=== PATIENT | male | born 1945 | race Caucasian/White ===

== ENCOUNTER → 2019-11-18 | Outpatient (CLI) | payer MEDICARE ==
--- NOTE | 2019-11-18 16:09 | CT ---
EXAMINATION TYPE: CT angio neck DATE OF EXAM: 11/18/2019 HISTORY: Carotid stenosis per order. COMPARISON: NONE CT DLP: 301.2 mGycm. Automated Exposure Control for Dose Reduction was Utilized. TECHNIQUE: CTA scan of the neck is performed without and with IV Contrast, patient injected with 65m l mL of Isovue 370, axial images are obtained, coronal and sagittal reformatted images are reviewed. Three-D reconstructed images are created on an independent workstation and reviewed. FINDINGS: Carotid/Vascular Structures: Mild mixed plaque in the aortic arch. Normal 3 vessel origin from the ao rtic arch with mild to moderate peripheral mixed plaque. No significant stenosis. Normal origin of ri ght common carotid artery from right brachiocephalic artery. Focal moderate to severe anterior calcified plaque in the distal right common carotid artery without significant greater than 50% stenosis. There is more focal moderate plaque right carotid bulb with mo re severe mixed plaque extending into the proximal internal carotid artery. Lumen diameter is narrowe d up to 3.2 mm raw data slice 586 with reconstitution up to 5.3 mm distal to this. The stenosis measu res under 50%. Patent right external carotid artery patent without significant stenosis. Tortuous cou rse to the remainder proximal to mid internal carotid artery with more moderate calcified plaque supr aclinoid segment. No additional significant stenosis. Moderate eccentric anterior plaque mid to distal left common carotid artery without significant steno sis. There is additional prominent anterior noncalcified moderate to severe plaque causing stenosis a pproaching but under 50%. There is focal significant narrowing with lumen diameter measuring down to 1.9 mm on raw data image 497 and reconstitution superior to this up to 8.8 mm due to densely calcifie d plaque. Remainder right internal carotid artery shows tortuous course proximal to mid segment with moderate peripheral plaque supraclinoid segment. No additional significant stenosis. Significant sten osis at origin of right external carotid artery also felt present. Some calcified plaque along course of distal vertebral arteries bilaterally. Vertebral arteries are p atent to basilar junction. Other: There is 2.0 cm low dense lesion in the posterior scalp axial image 64 likely reflecting sebac eous cysts or other dermatologic etiology. Slight scoliotic curvature with multilevel spurring in the spine. Reversal of normal cervical curvatu re with moderate disc space narrowing C5-C6 and C6-C7 levels. IMPRESSION: Confirmation of significant stenosis proximal left internal carotid artery due to severel y calcified plaque approaching 80% lumen diameter narrowing. Some limitation on calcified plaque due to blooming artifact noted. Significant stenosis also at origin of left external carotid artery incid entally noted.
== END | disposition home or self-care (01) ==
LOC: RADCTMAIN 13:12
PROVIDERS: ATTEND Thoracic Surgery (Cardiothoracic Vascular Surgery)
DX: I65.22 Occlusion and stenosis of left carotid artery (principal)
CPT/HCPCS: 82565; 84520; 70498; 36415; Q9967

== ENCOUNTER 2020-06-10 06:45 | Inpatient (IN) | payer MEDICARE ==
[2020-06-04 16:29] VITALS: BMI 26.5
[2020-06-10] MEDS ORDERED: HYDROmorphone 0.5 MG/0.5 ML SYRINGE IVP PRN (07:00)
[2020-06-10 07:21] VITALS: BP 178/88; PULSE 72; RESP 16; TEMP 97.5
[2020-06-10] MEDS: ONDANSETRON 4 MG/2 ML VIAL IVP PRN (07:40)
[2020-06-10] MEDS: LACTATED RINGERS 1,000 ML IV SCH (07:40)
[2020-06-10] MEDS: LIDOCAINE 1% (10MG/ML) FOR IV START INTRADERMA PRN (07:40)
[2020-06-10] MEDS: DEXAMETHASONE SOD PHOSPHATE 4 MG/ML 1 ML VIAL IV ONE (07:41)
== END 2020-06-10 09:41 | disposition home or self-care (01) | DRG 68 ==
LOC: 2ORMAIN 06:45
PROVIDERS: ADMIT Surgery; ATTEND Surgery
DX: I65.23 Occlusion and stenosis of bilateral carotid arteries (principal); I27.20 Pulmonary hypertension, unspecified; I73.9 Peripheral vascular disease, unspecified; Z53.9 Procedure and treatment not carried out, unspecified reason; R06.00 Dyspnea, unspecified; E78.2 Mixed hyperlipidemia; I08.8 Other rheumatic multiple valve diseases; I10 Essential (primary) hypertension; J45.909 Unspecified asthma, uncomplicated; I25.10 Atherosclerotic heart disease of native coronary artery without angina pectoris; Z79.899 Other long term (current) drug therapy
CPT/HCPCS: 86850; 86900; 86901

== ENCOUNTER 2020-06-11 11:07 | Inpatient (IN) | payer MEDICARE ==
[2020-06-10 11:34] VITALS: BMI 26.4
[~2020-06-11 11:07] MED LIST: MIDAZOLAM 2 MG/2 ML VIAL IV PRN; NITROGLYCERIN-D5W PMX 50 MG in DEXTROSE/WATER 1 250ML.BAG IV SCH; ONDANSETRON 4 MG/2 ML VIAL IVP ONE
[2020-06-11] MEDS: LACTATED RINGERS 1,000 ML IV SCH (11:57)
[2020-06-11] MEDS ORDERED: LIDOCAINE 1% (10MG/ML) FOR IV START INTRADERMA ONE (11:57)
[2020-06-11] MEDS: DEXAMETHASONE SOD PHOSPHATE 4 MG/ML 1 ML VIAL IV ONE ×2 (12:15→18:55)
[2020-06-11] MEDS ORDERED: PHENYLEPHRINE 40 MG in SODIUM CHLORIDE 0.9% 250 ML IV ONE (12:15)
[2020-06-11] MEDS ORDERED: MIDAZOLAM 2 MG/2 ML VIAL IVP ONE (12:28)
--- NOTE | 2020-06-11 14:17 | P.ANPRN ---
Procedure Note - Anesthesia - Invasive Line Right Arterial Line Time Out Performed: Yes (1222) Date of Procedure: 06/11/20 Time of Procedure: 12:23 Location of Patient: PreOp Preparation: Sterile Prep Ultrasound Used: Yes Purpose - Visualization and Identification of Vasculature: Yes Image Stored and Saved: Yes Narrative: Central line placement per sterile protocol utilized. +local +attempt x 1 +secured
[2020-06-11] MEDS ORDERED: fentaNYL (PF) 50 MCG/ML 2 ML AMP ONE (14:25)
[2020-06-11] MEDS ORDERED: PROTAMINE SULFATE 10 MG/ML 5 ML VIAL IV ONE (14:25)
[2020-06-11] MEDS ORDERED: LIDOCAINE 1% INJ 10MG/ML (20 ML MDV) ONE (14:25)
[2020-06-11] MEDS ORDERED: NEOSTIGMINE 1 MG/ML 10 ML VIAL ONE (14:25)
[2020-06-11] MEDS ORDERED: PHENYLEPHRINE-0.9% NACL SYG 1,000 MCG/10 ML SYRINGE ONE (14:25)
[2020-06-11] MEDS ORDERED: HEPARIN SODIUM,PORCINE 5,000 UNIT/ML 1 ML VIAL ONE (14:25)
[2020-06-11] MEDS ORDERED: SUCCINYLCHOLINE CHLORIDE 100 MG/5 ML SYR IV ONE (14:25)
[2020-06-11] MEDS ORDERED: PROPOFOL 10 MG/ML 20 ML VIAL IV ONE (14:25)
[2020-06-11] MEDS ORDERED: ROCURONIUM 10 MG/ML (5 ML VIAL) IV ONE (14:25)
[2020-06-11] MEDS ORDERED: GLYCOPYRROLATE 0.2 MG/ML 2 ML VIAL ONE (14:25)
[2020-06-11] MEDS ORDERED: LIDOCAINE 1% INJ 10MG/ML (20 ML MDV) SQ ONE (14:28)
[2020-06-11] MEDS ORDERED: SODIUM CHLORIDE 0.9% IRRIGATION ONE (15:21)
[2020-06-11] MEDS ORDERED: HEPARIN SODIUM PORCINE IRRIGATION ONE (15:21)
[2020-06-11] MEDS ORDERED: ceFAZolin 2 GM in SODIUM CHLORIDE 0.9% 500 ML 500 ML IRRIGATION ONE (15:28)
[2020-06-11] MEDS ORDERED: LACTATED RINGERS 1,000 ML IV ONE (16:01)
[2020-06-11] MEDS ORDERED: TRIMETHOBENZAMIDE 100 MG/ML 2 ML VIAL IM PRN (16:48)
[2020-06-11] MEDS ORDERED: MAG HYDROX/AL HYDROX/SIMETH 30 ML CUP PO PRN (16:48)
[2020-06-11] MEDS ORDERED: BENZOCAINE/MENTHOL LOZENG 1 EACH LOZENGE MUCOUS MEM PRN (16:48)
--- NOTE | 2020-06-11 16:48 | P.OP ---
Date of Procedure: 06/11/20 Preoperative Diagnosis: Hemodynamically severe left internal carotid artery stenosis. Postoperative Diagnosis: Same. Procedure(s) Performed: Left carotid endarterectomy with patch angioplasty. Anesthesia: FARRUKH Surgeon: Wilson Martin Child Care Cook #1: Matt Crenshaw Estimated Blood Loss (ml): 50 IV fluids (ml): 700 Urine output (ml): 200 Pathology: other (#1 left carotid plaque. #2 left cervical lymph node.) Condition: stable Disposition: PACU Indications for Procedure: Patient is a 74 Johan male who was found be suffering from here medically severe carotid stenosis. This is confirmed both on carotid duplex imaging as well as CT angiography. This stenosis is estimated to be greater than 80%. Options of continued medical therapy versus carotid endarterectomy versus carotid stenting were discussed with the patient. Is felt the patient would be best served by carotid endarterectomy. The procedure, risk and benefits were discussed. Patient wished to proceed. Description of Procedure: Patient brought the upper and placed in the supine position Mr. general endotracheal anesthesia delivered by the department anesthesiology. Figueroa catheter is placed to gravity drainage. The patient did receive 2 g of intravenously administered Ancef in the perioperative phase for prophylactic therapy. The left lateral neck supraclavicular and anterior chest wall areas were sterilely prepped and draped in the usual manner. Skin incision along the anterior border the sternocleidomastoid muscle was made carried down through the subcu change tissues. Hemostasis was achieved using electrocautery. Incision was deepened through the platysma and continued along the anterior border sternocleidomastoid muscle which was retracted posteriorly and laterally. The facial vein was identified doubly ligated and divided between the ligatures. The dissection was carried to the carotid sheath. The common carotid artery was identified and dissected free and vessel of the inve sting tissues and encircled Vesseloops. The vagus nerve was identified and left undisturbed. The dissection was then carried cephalad to the level of bulb. The superior thyroid artery and external carotid artery were dissected free of investing tissues and encircled Vesseloops. The dissection was then carried along the internal carotid to a level past the plaque burden. Vessel loop was placed about the internal carotid artery at this point. The patient was systemically heparinized. ACT was drawn and found to be 243. The Vesseloops surrounding the superior thyroid and external carotid artery were drawn closed. A clamp was placed on both the common and internal carotid arteries. Arteriotomy was made in the common carotid and extended with Bustos scissors through the bulb into the internal carotid artery. Back pressure were obtained. The mean ICA pressure was approximate 35 mmHg and as such a shunt was placed first in the internal carotid and allowed to backbleed and then placed in the common carotid artery, thus restoring flow into the internal segment. Endarterectomy plane was started in the common carotid extending to the bulb where a retraction endarterectomy was performed on the external system. The endarterectomy plane was continued into the internal carotid artery. The plaque was then removed. The residual plaque at the internal was then with 7-0 Prolene suture. The remaining luminal surface was inspected for any loose or free- floating material and this was removed where identified. Patch angioplasty closure with bovine pericardial patch was performed with 6-0 Prolene suture placed in running fashion. Just prior to completion anastomotic line the shunt was clamped and removed from the internal carotid artery. The internal carotid artery was backbled and re-occluded. The shunt was removed from the internal carotid artery. This was flushed and no thrombus was retrieved. The endarterectomized segment was flushed with heparinized saline solution and the anastomotic line closure completed. Backbleeding was allowed to occur from the internal carotid artery. Was occluded at its origin with DeBakey forceps. The Vesseloops surrounding the external carotid and superior thyroid arteries were released followed by release of the vessel loop around the internal carotid artery, thus flushing any potential debris into the external system. Flow was then restored into the internal system. Excellent pulse in the internal carotid artery distal to the endarterectomized segment was identified. Patient received 25 mg protamine to help reverse the heparin effect. One point of bleeding was identified along the anastomotic line and this was controlled with 6-0 Prolene suture. The wound was irrigated. Hemostasis appeared adequate. Deep tissues closed with 3-0 Vicryl. Dermis was closed with running intradermal 4-0 Vicryl suture. Skin glue was then applied. Patient awoke without apparent neurologic symptom. He was taken the recovery ar ea satisfactory and stable condition
[2020-06-11] MEDS ORDERED: CLOPIDOGREL 75 MG TAB PO SCH (17:00)
[2020-06-11] MEDS ORDERED: ASPIRIN 81 MG PO SCH (17:00)
[2020-06-11] MEDS: HYDROmorphone 0.5 MG/0.5 ML SYRINGE IVP PRN ×2 (17:30→17:40)
[2020-06-11 18:28] LABS: Glucose,Whole Blood 125 mg/dL (75-99)
[2020-06-11] MEDS: ASPIRIN 81 MG PO SCH (20:52)
[2020-06-11] MEDS: CLOPIDOGREL 75 MG TAB PO SCH (20:53)
[2020-06-12] MEDS: ACETAMINOPHEN TAB 325 MG TAB PO PRN ×2 (02:25→08:31)
[2020-06-12] MEDS: LACTATED RINGERS 1,000 ML IV SCH (06:23)
[2020-06-12] MEDS: ASPIRIN 81 MG PO SCH (08:30)
[2020-06-12] MEDS ORDERED: PANTOPRAZOLE 40 MG TABLET PO SCH (08:30)
[2020-06-12] MEDS: CLOPIDOGREL 75 MG TAB PO SCH (08:31)
--- NOTE | 2020-06-12 11:12 | P.DS ---
Providers Date of admission: 06/11/20 11:07 Attending physician: Wilson Martin DO Primary care physician: Stated None Hospital Course: Pt is a 74 y/o male who came in for a planned L CEA. He underwnet the procedure on 06/11/2020 without incident and recovered in ICU. He is doing well. A line and kee are out. He is tolerating a diet with some throat soreness when swallowing. He is motor sensory intact, cn 2-12 intact although slight decrease in smile on left. likley due to retraction, otherwise no motor deficit. incision clean and dry. no significant hematoma. At this time patient appears stable for discharge, instructions given. He seemingly understands and is willing to proceed as such. He will be sent home on statin, asa and plavix. He may shower tomorrow. He will follow up with Dr Martin in 2 weeks. He is to call with any questions or concerns. Patient Condition at Discharge: Good Plan - Discharge Summary Discharge Rx Participant: Yes New Discharge Prescriptions: New Clopidogrel [Plavix] 75 mg PO DAILY #30 tablet No Action Simvastatin [Zocor] 10 mg PO HS Omeprazole [PriLOSEC] 20 mg PO QAM Acetaminophen [Tylenol] 500 mg PO Q4-6H PRN PRN Reason: Pain Multivitamin [Multivitamins Adult Gummies] 2 each PO DAILY Albuterol Sulfate [Albuterol Sulfate Hfa] 2 puff PO Q6H PRN PRN Reason: asthma sx Discharge Medication List Omeprazole [PriLOSEC] 20 mg PO QAM 02/26/15 [History] Simvastatin [Zocor] 10 mg PO HS 02/26/15 [History] Acetaminophen [Tylenol] 500 mg PO Q4-6H PRN 06/04/20 [History] Albuterol Sulfate [Albuterol Sulfate Hfa] 2 puff PO Q6H PRN 06/04/20 [History] Multivitamin [Multivitamins Adult Gummies] 2 each PO DAILY 06/04/20 [History] Clopidogrel [Plavix] 75 mg PO DAILY #30 tablet 06/12/20 [Rx] Follow up Appointment(s)/Referral(s): Wilson Martin DO [Doctor of Osteopathic Medicine] - 2 Weeks (unable to schedule due to weekend hours, patient educated to call and make follow-up appt.) Patient Instructions/Handouts: Carotid Endarterectomy (DC) Activity/Diet/Wound Care/Special Instructions: 1.) Patient may shower the following day (06/13/2020). 2.) No heavy lifting for 2 weeks post procedure. Discharge Disposition: HOME SELF-CARE
[2020-06-12 12:45] VITALS: BP 136/81; PULSE 68; RESP 18
[2020-06-12 12:47] VITALS: TEMP 97.9
== END 2020-06-12 13:11 | disposition home or self-care (01) | DRG 39 ==
LOC: 2ORMAIN 11:07 → 2SICU 17:09
PROVIDERS: ADMIT Surgery; ATTEND Surgery
PROC: 03CL0ZZ Extirpation of Matter from Left Internal Carotid Artery, Open Approach (ICD-10-PCS; principal; 2020-06-11 13:00)
PROC: 03UL0KZ Supplement Left Internal Carotid Artery with Nonautologous Tissue Substitute, Open Approach (ICD-10-PCS; principal; 2020-06-11 13:00)
DX: I65.22 Occlusion and stenosis of left carotid artery (principal); E78.5 Hyperlipidemia, unspecified; I07.1 Rheumatic tricuspid insufficiency; J45.909 Unspecified asthma, uncomplicated; I25.2 Old myocardial infarction; Z79.82 Long term (current) use of aspirin; Z79.899 Other long term (current) drug therapy; Z86.73 Personal history of transient ischemic attack (TIA), and cerebral infarction without residual deficits; Z98.49 Cataract extraction status, unspecified eye; Z87.19 Personal history of other diseases of the digestive system; Z98.890 Other specified postprocedural states; Z87.39 Personal history of other diseases of the musculoskeletal system and connective tissue
CPT/HCPCS: 86850; 86900; 86901; 88304; 88305; 88311